=== PATIENT | male | born 2000 | race Two or more races ===

== ENCOUNTER 2025-02-11 06:57 | Emergency (ER) | payer OTHER, SELFPAY ==
[2025-02-11 07:01] VITALS: BP 136/91; PULSE 60; TEMP 35.5; O2SAT 100; BMI 27.9
[2025-02-11 07:39] LABS: Hematocrit 44.6 % (42.0-54.0); Hemoglobin 15.2 g/dL (14.0-18.0); Immature Granulocytes Abs Auto 0.09 10^3/uL (0.00-0.03); Immature Granulocytes Pct Auto 0.5 % (0.0-0.5); Lymphocytes Absolute Auto 1.0 10^3/uL (1.2-3.8); Mean Corpuscular HGB Conc 34.1 g/dL (29.9-35.2); Mean Corpuscular Hemoglobin 29.5 pg (25.9-34.0); Mean Corpuscular Volume 86.6 fL (80.0-94.0); Platelet Count 322 10^3/uL (150-450); Red Blood Count 5.15 10^6/uL (4.70-6.10); White Blood Count 17.2 10^3/uL (4.0-11.0)
[2025-02-11] MEDS: 0.9 % SODIUM CHLORIDE 1,000 ML 1000 ML IV (07:40)
--- NOTE | 2025-02-11 07:43 | ED.GENADUL1 ---
HPI HPI - General Adult General Chief complaint: Nausea/Vomiting/Diarrhea Stated complaint: NVD Time Seen by Provider: 02/11/25 07:07 Source: patient Mode of arrival: walk-in History of Present Illness HPI narrative: 24-year-old male presented for nausea and vomiting. He did not have diarrhea. It started at 3:00 this morning. No known ill contacts. No hematemesis or fever. Related Data Previous Rx's ?Medication ?Instructions ?Recorded ondansetron 4 mg disintegrating 4 mg PO Q6H PRN nausea and 02/11/25 tablet vomiting #20 tabs Allergies Allergy/AdvReac Type Severity Reaction Status Date / Time No Known Drug Allergies Allergy Verified 02/11/25 07:01 Review of Systems ROS Narrative A ten point review of systems is negative except as noted above. PFSH PFSH Social History Little interest or pleasure in doing things: not at all Feeling down, depressed, or hopeless: not at all Exam Narrative Exam Narrative: Nurses note and vital signs reviewed General:The patient appears in no acute distress. He is laying flat on the examination cart Skin:Warm, dry, mild pallor noted.There is no rash noted. Head:Normocephalic, atraumatic Eye: Normal conjunctiva, no drainage Ears, Nose, Mouth, and Throat: oral mucosa is moist. Nares patent. Cardiovascular:Regular Rate and Rhythm Respiratory:Patient is in no distress, no accessory muscle use, lungs are clear to auscultation, no wheezing, rales or rhonchi Back:non-tender GI: Soft and nontender nondistended Musculoskeletal: The patient has no evidence of calf tenderness, no pitting edema, symmetrical pulses noted bilaterally Neurological:A&O, normal speech Psychiatric:Cooperative Constitutional Vital Signs, click to edit/add: Last Vital Signs Temp 96 F L 02/11/25 07:01 Pulse 60 02/11/25 07:01 Resp 16 02/11/25 07:01 BP 136/91 02/11/25 07:01 Pulse Ox 100 02/11/25 07:01 O2 Del Method Room Air 02/11/25 07:01 Course Vital Signs Vital signs: Vital Signs Temperature 96 F L 02/11/25 07:01 Pulse Rate 60 02/11/25 07:01 Respiratory Rate 16 02/11/25 07:01 Blood Pressure 136/91 02/11/25 07:01 Pulse Oximetry 100 02/11/25 07:01 Oxygen Delivery Method Room Air 02/11/25 07:01 Temperature 96 F L 02/11/25 07:01 Pulse Rate 60 02/11/25 07:01 Respiratory Rate 16 02/11/25 07:01 Blood Pressure 136/91 02/11/25 07:01 Pulse Oximetry 100 02/11/25 07:01 Oxygen Delivery Method Room Air 02/11/25 07:01 Medical Decision Making MDM Narrative Medical decision making narrative: Blood work is nonspecific. She was given IV fluids and Zofran and feels much better and is tolerating p.o. liquids. He is able to be discharged home. I have no clinical suspicion of acute appendicitis or other acute inflammatory abdominal condition. Treatment diagnosis and follow-up were discussed with the patient. Differential Diagnosis Differential Diagnosis: Nausea and vomiting, gastroenteritis, dehydration Lab Data Lab results reviewed: Yes I reviewed the patient's lab results Labs: Lab Results 02/11/25 Range/Units 07:15 WBC 17.2 H (4.0-11.0) 10^3/uL RBC 5.15 (4.70-6.10) 10^6/uL Hgb 15.2 (14.0-18.0) g/dL Hct 44.6 (42.0-54.0) % MCV 86.6 (80.0-94.0) fL MCH 29.5 (25.9-34.0) pg MCHC 34.1 (29.9-35.2) g/dL RDW 12.4 (11.0-15.0) % Plt Count 322 (150-450) 10^3/uL MPV 9.4 L (9.5-13.5) fL Neut % (Auto) 91.3 H (43.0-75.0) % Lymph % (Auto) 5.9 L (20.5-60.0) % [place] % (Auto) 2.1 (1.7-12.0) % Eos % (Auto) 0.0 L (0.9-7.0) % Baso % (Auto) 0.2 (0.2-2.0) % Neut # (Auto) 15.7 H (1.4-6.5) 10^3/uL Lymph # (Auto) 1.0 L (1.2-3.8) 10^3/uL [place] # (Auto) 0.4 (0.3-0.8) 10^3/uL Eos # (Auto) 0.0 (0.0-0.7) 10^3/uL Baso # (Auto) 0.0 (0.0-0.1) 10^3/uL Abs Immat Gran (auto) 0.09 H (0.00-0.03) 10^3/uL Imm/Tot Granulo (auto) 0.5 (0.0-0.5) % Sodium 144 (136-145) mmol/L Potassium 3.7 (3.5-5.1) mmol/L Chloride 105 (98-107) mmol/L Carbon Dioxide 27.3 (21.0-32.0) mmol/L Anion Gap 15.4 BUN 13.0 (7.0-18.0) mg/dL Creatinine 0.89 (0.70-1.30) mg/dL Est GFR ( Amer) >60 (>=60 mL/min/1.73m^2) Est GFR (Non-Af Amer) >60 (>=60 mL/min/1.73m^2) BUN/Creatinine Ratio 14.6 Glucose 198 H (74-106) mg/dL Calcium 9.3 (8.5-10.1) mg/dL Discharge Plan Discharge Chief Complaint: Nausea/Vomiting/Diarrhea Clinical Impression: Nausea & vomiting Patient Disposition: Home, Self-Care Time of Disposition Decision: 08:50 Condition: Good Mode of Transportation: Private Vehicle Prescriptions / Home Meds: New ondansetron 4 mg tablet,disintegrating 4 mg PO Q6H PRN (Reason: nausea and vomiting) Qty: 20 0RF Print Language: Sami Instructions: Acute Nausea and Vomiting (ED) Referrals: Erickson Zhong MD [Primary Care Provider, Emergency Medicine] - 1 week
[2025-02-11 07:53] LABS: Anion Gap 15.4; Blood Urea Nitrogen 13.0 mg/dL (7.0-18.0); Calcium 9.3 mg/dL (8.5-10.1); Carbon Dioxide 27.3 mmol/L (21.0-32.0); Chloride 105 mmol/L (98-107); Estimated GFR (African America >60 (>=60 mL/min/1.73m^2); Estimated GFR (Non-African Ame >60 (>=60 mL/min/1.73m^2); Glucose 198 mg/dL (74-106); Potassium 3.7 mmol/L (3.5-5.1); Sodium 144 mmol/L (136-145)
--- OUTSIDE RECORDS SUMMARY | 2025-02-11 07:57 | XMS_ITS | Clinical Summary ---
Author Organization [employer] [facility] tem Address [id number] [place] [address] Care Team Providers Care Supervisor Publications Production Name Role Phone Services, [facility] Primary Care Provider Allergies No known active allergies Medications MedicationSigDispense QuantityRefillsLast FilledStart DateEnd DateStatus chlorhexidine (PERIDEX) 0.12 % solution Indications:Acute tonsillitis, unspecified etiologyApply 15 mL to the mouth or throat 2 (two) times a day. 150 mL 05/09/2020ctive Additional Information Patient not taking.Reported on 05/12/2020 ibuprofen (ADVIL,MOTRIN) 600 mg tablet Take 600 mg by mouth every 6 (six) hours as needed for pain.Active prednisoLONE (PRELONE) 15 mg/5 mL syrup Take 10 mL PO QD x 5 days 50 mL 05/24/2020ctive promethazine (PHENERGAN) 6.25 mg/5 mL syrup Take 15-20 mL by mouth every 4-6 hours as needed for nausea vomiting 200 mL 05/24/2020ctive Active Problems ProblemNoted DateDiagnosed DatePain in left oemznqtp97/12/2021hronic gmapgbvtstg26/09/2021Tonsillar umxpwkjvbys20/09/2021 Family History Medical HistoryRelationNameCommentsNo Known ProblemsBrotherNo Known Problems FatherNo Known ProblemsMotherNo Known ProblemsSisterRelationNameStatusComments BrotherAliveFatherAliveMotherAliveSisterAlive Social History Tobacco UseTypesPacks/DayYears UsedDateSmoking Tobacco: NeverSmokeless Tobacco: NeverAlcohol UseStandard Drinks/WeekCommentsNever0 (1 standard drink = 0.6 oz pure alcohol)AUDIT-CAnswerDate RecordedQ1: How often do you have a drink containing alcohol?Never04/21/2020Q2: How many drinks containing alcohol do you have on a typical day when you are drinking?Not asked04/21/2020Q3: How often do you have six or more drinks on one occasion?Never1ChildcareAnswerDate UurxgptsSupkprwbiWfrfhdx04/18/2021EmploymentAnswerDate RecordedEmploymentUnknown 1Purpose - LifeAnswerDate RecordedPurpose and direction in lifeUnknown 04/20/2020ex and Gender InformationValueDate RecordedSex Assigned at BirthNot on fileLegal LfmMuob2010/04/2014 5:40 PM EDTGender IdentityNot on fileSexual OrientationNot on file Last Filed Vital Signs Vital SignReadingTime TakenCommentsBlood Zfgmrrkq222/7703 10:18 AM EST Sgjvi2509 10:18 AM KRMDftbthqvgoj52.7 ??C (98.1 ??F)05/07/2020 6:27 PM ESTstates 100.7f oral PTARespiratory Cxeh5047 6:27 PM ESTOxygen Hdnmmhnynn29%05/07/2020 6:48 PM ESTInhaled Oxygen Concentration--Jbxgar051.2 kg (221 lb)05/12/2020 10:18 AM IINUehvlf703.3 cm (5' 11 )05/12/2020 10:18 AM EST Body Mass Index30.8203 10:18 AM EST Plan of Treatment Health MaintenanceDue DateLast DoneCommentsDepression Pwzprxypq71/15/2013Tobacco Gjbkwybde95/15/2013dult BMI Mmryibkrg73/15/2019DTaP,Tdap and Td Vaccines (7 - Td or Tdap), 07/12/2005, 04/21/2002, Additional history existsInfluenza Eujllvv9211/01/2024 Medical Devices Not on file Insurance Care Teams Team MemberRelationshipSpecialtyStart DateEnd Date Services, [facility] [address] [place], [place] PCP - GeneralFamily Medicine05/01/20
== END 2025-02-11 09:09 | disposition home or self-care (01) ==
PROVIDERS: Emergency Provider Emergency Medicine; PCP Emergency Medicine
DX: R11.2 Nausea with vomiting, unspecified (principal)
CPT/HCPCS: 36415; 80048; 85025; 96361; 96374; 99284; J2405